=== PATIENT | male | born 1995 | race Hispanic/Latino ===

== ENCOUNTER 2018-11-09 15:26 | Emergency (ER) | payer MEDICAID ==
[2018-11-09] MEDS ORDERED: CEFTRIAXONE SODIUM 500 MG VIAL ONE (15:50)
[2018-11-09] MEDS ORDERED: LIDOCAINE HCL-MPF 1% 2ML VIAL ONE (15:50)
[2018-11-09] MEDS ORDERED: AZITHROMYCIN 250 MG TABLET PO ONE (15:51)
[2018-11-09 15:58] LABS: APPEARANCE,URINE Clear (CLEAR); BILIRUBIN,URINE Negative (NEGATIVE); COLOR,URINE Dark Yellow (YELLOW); GLUCOSE, URINE (UA) Negative (NEGATIVE); KETONES,URINE Trace mg/dL (NEGATIVE); LEUKOCYTE ESTERASE ,URINE Moderate (NEGATIVE); NITRATE,URINE Negative (NEGATIVE); OCCULT BLOOD,URINE Negative (NEGATIVE); PH,URINE 6.5 (5.0-8.0); PROTEIN,URINE POS 1+ (NEGATIVE)
[2018-11-09 16:13] LABS: BACTERIA,URINE Few /HPF (None Seen); RBC,URINE 0-1 /HPF (0-1)
[2018-11-09 16:14] LABS: MUCUS,URINE Few LPF (None Seen); SQUAMOUS EPITHELIAL CELL,UR Few /HPF (0-2)
== END 2018-11-09 16:35 | disposition home or self-care (01) ==
LOC: EDH 15:26
DX: N39.0 Urinary tract infection, site not specified (principal); J06.9 Acute upper respiratory infection, unspecified; Z72.0 Tobacco use
CPT/HCPCS: 71045; 81001; 87486; 87797; 87804 ×2; 96372; 99284; J0696; J3490